=== PATIENT | male | born 1985 | race Two or more races ===

== ENCOUNTER 2021-01-25 08:55 | Emergency (ER) | payer SELFPAY ==
[~2021-01-25] VITALS: Ht 182.9 cm; Wt 95.3 kg
[2021-01-25 09:30] LABS: Urine Amorphous Crystal FEW /hpf (None Seen); Urine Bacteria NONE SEEN /hpf (None Seen); Urine Blood Negative /uL (Negative); Urine Mucus FEW (None Seen); Urine Specific Gravity 1.029 (1.001-1.035); Urine WBC 2 /hpf (0 - 3)
[2021-01-25 09:48] LABS: Alcohol, Urine < 3.0 mg/dL (0-10); Amphetamine Screen, Urine NEGATIVE (NEGATIVE); Barbiturate Scree,Urine NEGATIVE (NEGATIVE); Benzodiazephine Screen, Urine NEGATIVE (NEGATIVE); Cannabinoid Screen, Urine POSITIVE (NEGATIVE); Cocaine Screen, Urine NEGATIVE (NEGATIVE)
[2021-01-25 09:49] LABS: Basophils # (auto) 0 10 ^3/uL (0-0.2); Basophils % (auto) 0.2 % (0.0-2.0); Eosinophils # (auto) 0 10 ^3/uL (0-0.8); Eosinophils % (auto) 0.3 % (0.0-7.0); Hematocrit 44.1 % (41.0-53.0); Hemoglobin 15.1 g/dL (13.5-17.5); Lymphocytes # (auto) 1.7 10 ^3/uL (0.4-5.4); Lymphocytes % (auto) 21.5 % (10.0-50.0); Mean Corpuscular Hgb Conc. 34.3 g/dL (32.0-36.0); Mean Corpuscular Volume 87.3 fL (80.0-100.0); Monocytes # (auto) 0.4 10 ^3/uL (0-1.3); Monocytes % (auto) 5.2 % (0.0-12.0); Neutrophils # (auto) 5.9 10 ^3/uL (1.6-8.6); Neutrophils % (auto) 72.8 % (37.0-80.0); Nucleated Red Blood Cells % 0.1 %; Platelet Count (auto) 204 10^3/uL (140-450); Red Blood Cells 5.05 10^6/uL (4.5-5.90); Red Cell Distribution Width 13.1 % (11.8-14.3); White Blood Cell 8.1 10^3/uL (4.4-10.8)
[2021-01-25 09:58] LABS: Opiate Scree,Urine NEGATIVE (NEGATIVE); Phencyclidine Screen, Urine NEGATIVE (NEGATIVE)
[2021-01-25 10:03] LABS: Calcium 9.1 mg/dL (8.5-10.1); Potassium 3.2 mmol/L (3.5-5.1)
[2021-01-25 10:06] LABS: BUN/Creatinine Ratio 10.6; Bilirubin, Total 0.4 mg/dL (0.2-1.0); Total Protein 7.6 g/dL (6.4-8.2)
[2021-01-25] MEDS ORDERED: PROCHLORPERAZINE EDISYLATE 5 MG/ML 2ML VIAL IV ONE (11:00)
[2021-01-25] MEDS ORDERED: MORPHINE SULFATE 4 MG/ML SYR/VIAL IV ONE (11:00)
[2021-01-25] MEDS ORDERED: SODIUM CHLORIDE 0.9% 1,000 ML IV ONE ×2 (11:00)
[2021-01-25] MEDS ORDERED: POTASSIUM EFFERVESENT TAB 25 MEQ PO ONE (11:15)
[2021-01-25] MEDS ORDERED: KETOROLAC TROMETH 30 MG/ML 1ML VIAL IV ONE (12:00)
[2021-01-25 12:53] VITALS: BP 159/80
== END 2021-01-25 12:57 | disposition home or self-care (01) ==
LOC: ER 08:55
DX: R10.84 Generalized abdominal pain (principal); F12.10 Cannabis abuse, uncomplicated; R11.2 Nausea with vomiting, unspecified; R19.7 Diarrhea, unspecified
CPT/HCPCS: 36415; 80053; 80307; 81001; 85025; 96361; 96374; 96375; 99285; J0780; J1885

== ENCOUNTER 2023-03-18 23:00 | Emergency (ER) | payer MEDICAID, OTHER ==
[~2023-03-18] VITALS: Ht 182.9 cm; Wt 89.0 kg
[2023-03-18 23:49] VITALS: TEMP 98.5
[2023-03-19] MEDS ORDERED: SODIUM CHLORIDE 0.9% 1,000 ML IV ONE
[2023-03-19] MEDS ORDERED: cloNIDine HCL 0.1 MG TAB PO ONE (00:15)
[2023-03-19] MEDS ORDERED: LOPERAMIDE HCL 2 MG CAP/TAB PO ONE (00:15)
[2023-03-19] MEDS ORDERED: METOCLOPRAMIDE HCL 5MG/ml INJ 2ml VIAL IV ONE (00:15)
[2023-03-19 00:32] LABS: Basophils # (auto) 0 10 ^3/uL (0-0.2); Basophils % (auto) 0.5 % (0.0-2.0); Eosinophils # (auto) 0 10 ^3/uL (0-0.8); Eosinophils % (auto) 0.1 % (0.0-7.0); Hematocrit 42.8 % (41.0-53.0); Hemoglobin 14.2 g/dL (13.5-17.5); Lymphocytes # (auto) 1.1 10 ^3/uL (0.4-5.4); Lymphocytes % (auto) 13.7 % (10.0-50.0); Mean Corpuscular Hemoglobin 28.3 pg (28.0-32.0); Mean Corpuscular Hgb Conc. 33.2 g/dL (32.0-36.0); Mean Corpuscular Volume 85.4 fL (80.0-100.0); Monocytes # (auto) 0.4 10 ^3/uL (0-1.3); Monocytes % (auto) 5.7 % (0.0-12.0); Neutrophils # (auto) 6.2 10 ^3/uL (1.6-8.6); Nucleated Red Blood Cells % 0.1 %; Red Blood Cells 5.01 10^6/uL (4.5-5.90); Red Cell Distribution Width 13.2 % (11.8-14.3); White Blood Cell 7.7 10^3/uL (4.4-10.8)
[2023-03-19 01:00] LABS: Albumin 4.2 g/dL (3.4-5.0); Calcium 9.7 mg/dL (8.5-10.1); Potassium 3.6 mmol/L (3.5-5.1)
[2023-03-19 01:01] LABS: BUN/Creatinine Ratio 7.9 (10.0-20.0)
[2023-03-19 01:04] LABS: Total Protein 7.6 g/dL (6.4-8.2)
[2023-03-19] MEDS ORDERED: ACETAMINOPHEN/CODEINE#3 (300/30mg) TAB PO ONE (02:00)
[2023-03-19] MEDS ORDERED: NALO4SPR2 NAS (03:42)
[2023-03-19 04:30] VITALS: BP 116/71; PULSE 84; RESP 14; O2SAT 95
== END 2023-03-19 05:03 | disposition home or self-care (01) ==
LOC: ER 23:00
DX: F11.13 Opioid abuse with withdrawal (principal); R11.0 Nausea; R19.7 Diarrhea, unspecified; R10.9 Unspecified abdominal pain
CPT/HCPCS: 36415; 80053; 85025; 93005; 96361; 96374; 99284; J2765; J7030

== ENCOUNTER 2024-03-12 09:52 | Emergency (ER) | payer MEDICAID, OTHER ==
[~2024-03-12] VITALS: Ht 182.9 cm; Wt 93.2 kg
[~2024-03-12 09:52] MED LIST: NALO4SPR2 NAS
[2024-03-12 11:46] VITALS: BP 129/66; PULSE 63; RESP 18; TEMP 98.1; O2SAT 97
[2024-03-12] MEDS ORDERED: CEPH500C PO (13:31)
[2024-03-12] MEDS: TETANUS-DIPTH-ACEL PERTUSSIS 0.5ML SYR Tdap IM ONE (13:45)
[2024-03-13 09:15] LABS: Hepatitis B Surface Antibody Positive (Negative)
[2024-03-13 09:27] LABS: Hepatitis B Surface Antigen Negative (Negative)
== END 2024-03-12 14:00 | disposition home or self-care (01) ==
LOC: ER 09:53
DX: S91.311A Laceration without foreign body, right foot, initial encounter (principal); W22.8XXA Striking against or struck by other objects, initial encounter; Y93.01 Activity, walking, marching and hiking; Y92.096 Garden or yard of other non-institutional residence as the place of occurrence of the external cause; Y99.8 Other external cause status
CPT/HCPCS: 36415; 73630; 86703; 86706; 86803; 87340; 90471; 90715

== ENCOUNTER 2024-04-06 05:49 | Emergency (ER) | payer OTHER ==
[~2024-04-06] VITALS: Ht 182.9 cm; Wt 84.1 kg
[~2024-04-06 05:49] MED LIST changes: +CEPH500C PO
[2024-04-06 06:43] VITALS: BP 133/80; PULSE 105; RESP 18; TEMP 97.7; O2SAT 97
== END 2024-04-06 07:13 | disposition home or self-care (01) ==
LOC: ER 05:49
DX: S91.311D Laceration without foreign body, right foot, subsequent encounter (principal); Z48.00 Encounter for change or removal of nonsurgical wound dressing; Z79.899 Other long term (current) drug therapy; X58.XXXD Exposure to other specified factors, subsequent encounter

== ENCOUNTER 2024-12-12 06:21 | Emergency (ER) | payer OTHER ==
[~2024-12-12] VITALS: Ht 182.9 cm; Wt 93.7 kg
[2024-12-12 07:39] VITALS: BP 148/87; PULSE 67; RESP 16; TEMP 98.2; O2SAT 98
[2024-12-12] MEDS ORDERED: CEPH500C PO (07:48)
[2024-12-12] MEDS ORDERED: METH4PAK PO (07:48)
[2024-12-12] MEDS ORDERED: TRIA0.1O TOP (07:48)
--- NOTE | 2024-12-12 07:48 | ED.PDOC ---
History of Present Illness(SKN HPI Comments A 39 YEAR OLD MALE PRESENTS TO THE ED WITH COMPLAINT OF RASH. PATIENT STATES HE HAS BEEN EXPERIENCING A RASH ON HIS BILATERAL FEET FOR THE PAST 1 YEAR THAT COMES AND GOES A RASH ON HIS BILATERAL HANDS AND SCALP OFF AND ON FOR THE PAST 2 MONTHS. PATIENT REPORTS HE HAS A HISTORY OF ECZEMA. PATIENT DENIES FEVER, CHILLS, SHORTNESS OF BREATH, CHEST PAIN, ABDOMINAL PAIN, NAUSEA, VOMITING, HEADACHE, OR OTHER COMPLAINTS. NO OTHER SYMPTOMS OR MODIFYING FACTORS AT THIS TIME. PATIENT IS ALERT, ORIENTED X 4, AND HAS STEADY GAIT. Chief Complaint: Rash Time Seen by MD: 07:27 Primary Care Provider: NONE History of Present Illness: Nurses Notes, Medications, Allergies Allergies: Coded Allergies: NO KNOWN ALLERGIES (Unverified , 01/25/21) Home Meds Active Scripts Methylprednisolone (Medrol Dosepak) 4 Mg Pollo, 4 MG PO UD, #21 TAB UAD Prov:DELON FRIAS 12/12/24 Triamcinolone Acetonide (Triamcinolone Acetonide) 0.1 % Oin, 1 APPLIC TOP BID, #30 GRAMS Prov:DELON FRIAS PA 12/12/24 Cephalexin Monohydrate (Cephalexin) 500 Mg Cap, 1 CAP PO QID, #40 CAP Prov:DELON FRIAS 12/12/24 Cephalexin Monohydrate (Cephalexin) 500 Mg Cap, 1 CAP PO QID for 5 Days, #20 CAP 0 Refills Prov:DAMARIS GODWIN FOOD SAFETY SCIENTIST 03/12/24 Naloxone HCl (Narcan) 4 Mg/0.1 Ml Spr, 4 MG CYNDY ONCE PRN, #1 SPRAY 5 Refills May repeat doses every 2-3 minutes as needed. Prov:ROBERT MALIN 03/19/23 Information Source: Patient Mode of Arrival: Ambulatory Severity: Moderate Timing: Months Duration: Since onset, Intermittent Prehospital treatment: None Location: Abdomen, Foot, Hand, Head (SCALP) Mechanism: Spontaneous Onset Developed: Rash Occurence: Indoors Object: None Condition of Object: None Retained Foreign Body: No Wound Type: None Immunization Status of Animal: NA Tetanus: Unknown History of: None Associated Signs and Symptoms: Redness, Pain Past Medical History PAST MEDICAL HISTORY: Asthma Past Medical History (Other): ECZEMA Surgical History: Denies all surgeries Family History Family History: Reviewed,noncontributory to illness, No family hx of Cancer, No family hx of DM, No family hx of Heart berta, No family hx of HTN, No family hx ofKidney berta, No family hx of Liver berta, No family hx of Lung berta, No family hx of Stroke Social History Smoker: Cigarettes Alcohol: Denies ETOH Use Drugs: Denies Drug Use Lives In: Home Constitutional: denies: chills, diaphoresis, fatigue, fever, malaise, sweats, weakness, others EENTM: denies: blurred vision, double vision, ear bleeding, ear discharge, ear drainage, ear pain, ear ringing, eye pain, eye redness, hearing loss, mouth pain, mouth swelling, nasal discharge, nose bleeding, nose congestion, nose pain, photophobia, tearing, throat pain, throat swelling, voice changes, others Respiratory: denies: cough, hemoptysis, orthopnea, SOB at rest, shortness of breath, SOB with excertion, stridor, wheezing, others Cardiovascular: denies: chest pain, dizzy spells, diaphoresis, Dyspnea on exertion, edema, irregular heart beat, left arm pain, lightheadedness, palpitations, PND, syncope, others Gastrointestinal: denies: abdomen distended, abdominal pain, blood streaked bowels, constipated, diarrhea, dysphagia, difficulty swallowing, hematemesis, melena, nausea, poor appetite, poor fluid intake, rectal bleeding, rectal pain, vomiting, others Genitourinary: denies: burning, dysuria, flank pain, frequency, hematuria, incontinence, penile discharge, penile sore, pain, testicle pain, testicle swelling, urgency, others Neurological: denies: dizziness, fainting, headache, left sided numbness, left sided weakness, numbness, paresthesia, pre-existing deficit, right sided numbness, right sided weakness, seizure, speech problems, tingling, tremors, weakness, others Musculoskeletal: denies: back pain, gout, joint pain, joint swelling, muscle pain, muscle stiffness, neck pain, others Integumetry: reports: lesions, rash (RASH OF BILATERAL HANDS, FEET, AND SCALP); denies: bruises, change in color, change in hair/nails, dryness, laceration, lumps, wounds, others Allergic/Immunocompromised: denies: Difficulty Healing, Frequent Infections, Hives, Itching, others Hematologic/Lymphatic: denies: anemia, blood clots, easy bleeding, easy bruising, swollen glands, others Endocrine: denies: excessive hunger, excessive sweating, excessive thirst, excessive urination, flushing, intolerance to cold, intolerance to heat, unexplained weight gain, unexplained weight loss, others Psychiatric: denies: anxiety, bipolar disorder, depression, hopeless, panic disorder, schizophrenia, sleepless, suicidal, others All Other Systems: Reviewed and Negative Physical Exam General Appearance: No Apparent Distress, Normal HEENT: Normal ENT Inspection, PERRL/EOMI, Pharynx Normal, TMs Normal Neck: Full Range of Motion, Non-Tender, Normal, Normal Inspection Respiratory: Chest Non-Tender, Lungs Clear, No Accessory Muscle Use, No Respiratory Distress, Normal Breath Sounds Cardiovascular: No Edema, No JVD, No Murmur, No Gallop, Normal Peripheral Pulses, Regular Rate/Rhythm Breast Exam: Deferred Gastrointestinal: No Organomegaly, Non Tender, No Pulsatile Mass, Normal Bowel Sounds, Soft Genitalia: Deferred Pelvic: Deferred Rectal: Deferred Extremities: No calf tenderness, Normal capillary refill, Normal inspection, Normal range of motion, Non-tender, No pedal edema Musculoskeletal : Apperance: Normal Neurologic: Alert, termination clerk II-XII nml as Tested, No Motor Deficits, Normal Affect, Normal Mood, No Sensory Deficits Cerebellar Function: Normal Reflexes: Normal Skin: Dry, Rash (ECZEMATOUS SKIN RASH WITH PAPULAR, MACULAR AND VESICLE/CRUSTED SKIN RASH ON BILATERAL INNER FOOT, PALMS AND LOWER ABD WALL. +ECZEMA. ), Warm Peripheral Pulses: 2+ carotid (R), 2+ carotid (L), 2+ dorsalis pedis (R), 2+ dorsalis pedis (L) Lymphatic: No Adenopathy Was a procedure done? Was a procedure done?: No Differential Diagnosis (INTG) Differential Diagnosis: N/A Differential Diagnosis: Atopic dermatitis, Contact Dermatitis, Impetigo, Intertrigo, Scabies, Tinea, Urticaria Differential Diagnosis: N/A Abscess: N/A Differential Diagnosis: N/A X-Ray, Labs, Meds, VS Vital Signs Date Time Temp Pulse Resp B/P (MAP) Pulse Ox O2 Delivery O2 Flow Rate FiO2 12/12/24 07:39 98.2 67 16 148/87 (107) 98 98.2 12/12/24 07:39 67 16 98 Room Air 12/12/24 07:15 98.2 67 16 148/87 (107) 98 98.2 X-Ray, Labs, Meds, VS Comment EXTERNAL MEDICAL RECORDS REVIEWED: [NONE] INDEPENDENT HISTORIANS: [NONE] SOCIAL DETERMINANTS OF HEALTH: [NONE] LABS ORDERED: NONE REVIEWED AND INTERPRETED RESULTS: NONE IMAGING ORDERED: NONE TREATMENTS ORDERED: NONE PROCEDURES PERFORMED: NONE CRITICAL CARE TIME: NONE I HAVE DISCUSSED THE PATIENT WITH THE ATTENDING PHYSICIAN DR. FLETCHER AND HE AGREES WITH THE PATIENT'S PLAN OF CARE AND DISPOSITION. BASED ON HISTORY OF PRESENT ILLNESS, AND PHYSICAL EXAM, PATIENT WILL BE DISCHARGED HOME. DISCUSSED PLAN FOR DISCHARGE HOME WITH RX [KEFLEX, MEDROL DOSEPAK, AND TRIAMCINOLONE CREAM]. MEDICATION WARNINGS GIVEN. SHARED DECISION MAKING: PATIENT INSTRUCTED TO FOLLOW UP WITH PRIMARY CARE PROVIDER IN 1-2 DAYS FOR RE-EVALUATION OF SYMPTOMS. PATIENT VERBALIZES UNDERSTANDING TO RETURN TO ED FOR NEW OR WORSENING SYMPTOMS OR IF FOLLOW UP WITH PCP CANNOT BE OBTAINED. PATIENT FEELS COMFORTABLE GOING HOME AT THIS TIME. ALL QUESTIONS ADDRESSED AT TIME OF DISCHARGE. Time of 1ST Reevaluation: 08:00 Reevaluation 1ST: Improved Patient Education/Counseling: Diagnosis, Treatment, Need For Follow Up Family Education/Counseling: Diagnosis, Treatment, Need For Follow Up Medical Screening: No EMC Exist At This Time Departure 1 Departure Time of Disposition: 08:00 Impression: Primary Impression: Atopic dermatitis Qualified Codes: L20.9 - Atopic dermatitis, unspecified Disposition: 01 HOME / SELF CARE / HOMELESS Condition: Stable Additional Instructions: FOLLOW-UP WITH PCP IN 1 TO 2 DAYS FOR REFERRAL TO [facility]. TAKE MEDICATIONS PRESCRIBED. RETURN TO ED FOR ANY NEW OR WORSENING SYMPTOMS. e-Prescriptions Methylprednisolone (Medrol Dosepak) 4 Mg Pollo 4 MG PO UD, #21 TAB UAD Prov: DELON FRIAS 12/12/24 Triamcinolone Acetonide (Triamcinolone Acetonide) 0.1 % Oin 1 APPLIC TOP BID, #30 GRAMS Prov: DELON FRIAS 12/12/24 Cephalexin Monohydrate (Cephalexin) 500 Mg Cap 1 CAP PO QID, #40 CAP Prov: DELON FRIAS 12/12/24 Discharged With: Self Critical Care Note Critical Care Time?: No Stability Stability form required: No I personally scribed for DELON FRIAS ([email or web address]) on 12/12/24 at 07:48. Electronically submitted by Nemesio Grace ([email or web address]). DELON FRIAS Dec 12, 2024 07:48
== END 2024-12-12 07:54 | disposition home or self-care (01) ==
LOC: ER 06:21
DX: L20.9 Atopic dermatitis, unspecified (principal); J45.909 Unspecified asthma, uncomplicated; F17.210 Nicotine dependence, cigarettes, uncomplicated

== ENCOUNTER 2025-03-10 10:55 | Inpatient (IN) | payer MEDICAID, OTHER ==
[~2025-03-10] VITALS: Ht 182.9 cm; Wt 90.9 kg
[~2025-03-10 10:55] MED LIST changes: +METH4PAK PO; +TRIA0.1O TOP
--- NOTE | 2025-03-10 13:51 | ED.PDOC ---
GI ASSESSMENT HPI Comments 39-year-old male presents with a chief complaint of abdominal pain with associated nausea, vomiting, diarrhea and fever. Patient mentions that his pain is localized to his LUQ and LLQ, nonradiating, and has been present for 2 days. Patient reports that he has had symptoms like this before in the past and was given Zofran, but states that it did not work for him. Patient states he is not currently able to tolerate any food or liquids. Patient denies any rectal bleeding or hematemesis. Patient is not currently vomiting. Chief Complaint: Nausea/Vomiting Time Seen by MD: 13:19 Primary Care Provider: NONE Reviewed Notes: Medications, Allergies Allergies: Coded Allergies: NO KNOWN ALLERGIES (Unverified , 01/25/21) Home Meds Active Scripts Methylprednisolone (Medrol Dosepak) 4 Mg Pollo, 4 MG PO UD, #21 TAB UAD Prov:DELON FRIAS 12/12/24 Triamcinolone Acetonide (Triamcinolone Acetonide) 0.1 % Oin, 1 APPLIC TOP BID, #30 GRAMS Prov:DELON FRIAS 12/12/24 Cephalexin Monohydrate (Cephalexin) 500 Mg Cap, 1 CAP PO QID, #40 CAP Prov:DELON FRIAS 12/12/24 Cephalexin Monohydrate (Cephalexin) 500 Mg Cap, 1 CAP PO QID for 5 Days, #20 CAP 0 Refills Prov:DAMARIS GODWIN DIRECTOR OF ANALYTICS 03/12/24 Naloxone HCl (Narcan) 4 Mg/0.1 Ml Spr, 4 MG CYNDY ONCE PRN, #1 SPRAY 5 Refills May repeat doses every 2-3 minutes as needed. Prov:ROBERT MALIN 03/19/23 Information Source: Patient Mode of Arrival: Ambulatory Timing: Days Duration: Since onset Prehospital treatment: None Quality: Aching Vomitus: Food Particles Stool: Watery Severity: Moderate Recent: None Recent Hx of: None Pain Location: LUQ, LLQ Modifying Factors: Nothing Associated sign and symptoms: Nausea, Vomiting, Diarrhea, Abdominal Pain Past Medical History PAST MEDICAL HISTORY: Asthma Surgical History: Denies all surgeries Family History Family History: Reviewed,noncontributory to illness, No family hx of Cancer, No family hx of DM, No family hx of Heart berta, No family hx of HTN, No family hx ofKidney berta, No family hx of Liver berta, No family hx of Lung berta, No family hx of Stroke Social History Smoker: Cigarettes Alcohol: Denies ETOH Use Drugs: Denies Drug Use Lives In: Home Constitutional: denies: chills, diaphoresis, fatigue, fever, malaise, sweats, weakness, others EENTM: denies: blurred vision, double vision, ear bleeding, ear discharge, ear drainage, ear pain, ear ringing, eye pain, eye redness, hearing loss, mouth pain, mouth swelling, nasal discharge, nose bleeding, nose congestion, nose pain, photophobia, tearing, throat pain, throat swelling, voice changes, others Respiratory: denies: cough, hemoptysis, orthopnea, SOB at rest, shortness of breath, SOB with excertion, stridor, wheezing, others Cardiovascular: denies: chest pain, dizzy spells, diaphoresis, Dyspnea on exertion, edema, irregular heart beat, left arm pain, lightheadedness, palpitations, PND, syncope, others Gastrointestinal: reports: abdominal pain, diarrhea, nausea, vomiting; denies: abdomen distended, blood streaked bowels, constipated, dysphagia, difficulty swallowing, hematemesis, melena, poor appetite, poor fluid intake, rectal bleeding, rectal pain, others Genitourinary: denies: burning, dysuria, flank pain, frequency, hematuria, incontinence, penile discharge, penile sore, pain, testicle pain, testicle swelling, urgency, others Neurological: denies: dizziness, fainting, headache, left sided numbness, left sided weakness, numbness, paresthesia, pre-existing deficit, right sided numbness, right sided weakness, seizure, speech problems, tingling, tremors, weakness, others Musculoskeletal: denies: back pain, gout, joint pain, joint swelling, muscle pain, muscle stiffness, neck pain, others Integumetry: denies: bruises, change in color, change in hair/nails, dryness, laceration, lesions, lumps, rash, wounds, others Allergic/Immunocompromised: denies: Difficulty Healing, Frequent Infections, Hives, Itching, others Hematologic/Lymphatic: denies: anemia, blood clots, easy bleeding, easy bruising, swollen glands, others Endocrine: denies: excessive hunger, excessive sweating, excessive thirst, excessive urination, flushing, intolerance to cold, intolerance to heat, unexplained weight gain, unexplained weight loss, others Psychiatric: denies: anxiety, bipolar disorder, depression, hopeless, panic disorder, schizophrenia, sleepless, suicidal, others All Other Systems: Reviewed and Negative Physical Exam General Appearance: Moderate Distress HEENT: Other (Pupils and face symmetric. Dry mucous membranes.) Neck: Full Range of Motion, Normal Inspection Respiratory: Lungs Clear, No Accessory Muscle Use, No Respiratory Distress, Normal Breath Sounds Cardiovascular: No Edema, No JVD, Regular Rate/Rhythm Breast Exam: Deferred Gastrointestinal: Epigastric, LLQ, LUQ, Soft, Tenderness Genitalia: Deferred Pelvic: Deferred Rectal: Deferred Extremities: Normal inspection, Normal range of motion, Non-tender, No pedal edema Neurologic: Alert (Oriented x4), Normal Affect, Normal Mood, Other (Ambulatory) Cerebellar Function: NOT DONE Reflexes: NOT DONE Skin: Diaphoresis, Pallor, Warm Lymphatic: NOT DONE Was a procedure done? Was a procedure done?: No GI differential Dx Differential Diagnosis: Diverticular disease, Gastritis/PUD, Gastroenteritis, Inflammatory BD, Ischemic Bowel, Pancreatitis, UTI, Dehydration, Electrolyte Imbalance, Food Poisoning, Bacterial, Viral, Hypovolemia, Kidney Stone Other Differential Diagnosis Colitis, among others X-Ray, Labs, Meds, VS Vital Signs Date Time Temp Pulse Resp B/P (MAP) Pulse Ox O2 Delivery O2 Flow Rate FiO2 03/10/25 15:05 60 18 137/70 03/10/25 14:58 60 18 98 Room Air* 0 21 03/10/25 14:58 98.1 60 18 137/70 (92) 99 98.1 03/10/25 12:10 98.2 73 20 140/74 (96) 100 98.2 Lab Test 03/10/25 13:57 Range/Units White Blood Count 6.1 4.4-10.8 10^3/uL Red Blood Count 5.67 4.5-5.90 10^6/uL Hemoglobin 16.5 13.5-17.5 g/dL Hematocrit 47.8 41.0-53.0 % Mean Corpuscular Volume 84.3 80.0-100.0 fL Mean Corpuscular Hemoglobin 29.1 28.0-32.0 pg Mean Corpuscular Hemoglobin Concent 34.5 32.0-36.0 g/dL Red Cell Distribution Width 13.2 11.8-14.3 % Platelet Count 231 140-450 10^3/uL Mean Platelet Volume 10.3 6.9-10.8 fL Neutrophils (%) (Auto) 85.0 H 37.0-80.0 % Lymphocytes (%) (Auto) 12.2 10.0-50.0 % Monocytes (%) (Auto) 2.5 0.0-12.0 % Eosinophils (%) (Auto) 0.0 0.0-7.0 % Basophils (%) (Auto) 0.3 0.0-2.0 % Neutrophils # (Auto) 5.2 1.6-8.6 10 ^3/uL Lymphocytes # (Auto) 0.7 0.4-5.4 10 ^3/uL Monocytes # (Auto) 0.2 0-1.3 10 ^3/uL Eosinophils # (Auto) 0 0-0.8 10 ^3/uL Basophils # (Auto) 0 0-0.2 10 ^3/uL Nucleated Red Blood Cells 0.2 % Sodium Level 141 136-145 mmol/L Potassium Level 3.5 3.5-5.1 mmol/L Chloride Level 109 H 98-107 mmol/L Carbon Dioxide Level 21 20-31 mmol/L Anion Gap 11 5-15 Blood Urea Nitrogen 7 L 9-23 mg/dL Creatinine 0.94 0.700-1.30 mg/dL Glomerular Filtration Rate Calc 106 >90 mL/min BUN/Creatinine Ratio 7.4 L 10.0-20.0 Serum Glucose 107 H 74-106 mg/dL Calcium Level 9.8 8.7-10.4 mg/dL Total Bilirubin 0.6 0.2-1.0 mg/dL Aspartate Amino Transferase (AST) 23 13-40 U/L Alanine Aminotransferase (ALT) 23 7-40 U/L Alkaline Phosphatase 86 46-116 U/L Total Protein 7.5 5.7-8.2 g/dL Albumin 4.8 3.2-4.8 g/dL Lipase 27 12-53 U/L Current Medications Medications (Trade) Dose Ordered Sig/Andrew Route Start Time Stop Time Status Last Admin Sodium Chloride 3,000 ml @ 1,000 mls/hr Q3H ONCE IV 03/10/25 13:30 03/10/25 16:29 03/10/25 15:05 Ondansetron HCl (Zofran) 8 mg ONCE ONCE IV 03/10/25 13:30 03/10/25 13:35 DC 03/10/25 15:06 Morphine Sulfate 4 mg ONCE ONCE IV 03/10/25 13:30 03/10/25 13:35 DC 03/10/25 15:05 Metronidazole 100 ml @ 100 mls/hr ONCE ONCE IV 03/10/25 15:00 03/10/25 15:59 DC 03/10/25 15:32 PROCEDURE(s): ABPL - CT AB PEL WO CON-NO ORAL OR IV REASON: LUQ pain n/v/d ORDER NUMBER(s): [id number], ACCESSION NUMBER(s): [id number] Exam: CT CT AB PEL WO CON-NO ORAL OR IV History: LUQ pain n/v/d Comparison Study: None TECHNIQUE: Multidetector CT of the abdomen and pelvis without IV contrast. Axial, coronal and sagittal multiplanar reformats were obtained from the axial data set by the technologist. Radiation Dose Information: CT Dose: CTDI volume is 8.72 mGy. Dose-length product is 841.62 mGy*cm FINDINGS: Bibasilar atelectasis. Partially visualized heart is unremarkable. Mild hepatomegaly. Otherwise, liver, spleen, gallbladder, pancreas unremarkable. Mild hyperplasia of the left adrenal gland. Otherwise, the adrenal glands are unremarkable. Kidneys, ureters and urinary bladder unremarkable. Prostate measures 3.8 x 4.9 by 3.1 cm. Stomach is unremarkable. Small bowel loops unremarkable. Appendix is not well- visualized with no pericecal inflammatory reaction to suggest acute appendicitis. Limited evaluation of the abdominal structures due to motion. Questionable minimal wall thickening of the decompressed ascending colon with artifact limiting evaluation. Diverticulosis of the ascending colon without diverticulitis. No evidence of intraperitoneal free air or free fluid. No evidence of aortic aneurysm. No significant lymphadenopathy. Tiny fat containing umbilical hernia. Small fat containing left inguinal hernia. Subcentimeter bilateral inguinal lymph nodes which may be reactive. Destructive osseous lesions noted. IMPRESSION: Limited noncontrast imaging with motion artifact. Questionable minimal wall thickening of the decompressed ascending colon which may be due to inadequate distention with mild colitis not excluded. Colonic diverticulosis without diverticulitis. Appendix is not well-visualized. Without complete visualization of the appendix, can not exclude acute appendicitis. X-Ray, Labs, Meds, VS Comment 39-year-old male with a history of asthma presenting with nausea, vomiting, diarrhea, left-sided abdominal pain and subjective fever Vitals unremarkable Exam remarkable for epigastric and left-sided abdominal tenderness to palpation Rhythm strip independently interpreted by me: Sinus rhythm, rate 73, no ectopy. CT abdomen and pelvis IMPRESSION: Limited noncontrast imaging with motion artifact. Questionable minimal wall thickening of the decompressed ascending colon which may be due to inadequate distention with mild colitis not excluded. Colonic diverticulosis without diverticulitis. Appendix is not well-visualized. Without complete visualization of the appendix, can not exclude acute appendicitis. CBC, CMP and lipase unremarkable. UA pending Patient treated with the following in the ED: 3 L 0.9 normal saline IV bolus, morphine 4 mg IV, Zofran 8 mg IV, Levaquin 500 mg IV, Flagyl 500 mg IV, Compazine 10 mg IV On re-evaluation, patient states pain has improved, however patient was still vomiting despite 8 mg of IV Zofran. IV Compazine was ordered. Plan is to admit the patient for IV antibiotics, emesis control and possible GI evaluation. Time of 1ST Reevaluation: 13:49 Reevaluation 1ST: Unchanged Patient Education/Counseling: Diagnosis, Treatment Family Education/Counseling: No Family Present SEPSIS Sepsis Screen Date sepsis recognized/suspect: Mar 10, 2025 Time Sepsis recognized/suspect: 1210 Recent Procedure: No On Antibiotic Therapy: No Respiratory Rate >20: No Heart Rate >90: No Temp<36 C (96.8 F) or >38.3 C: No SBP <90 or MAP <65 mmHG: No New Acute Mental Status Change: No Is the patient on CPAP, BIPAP,: No Physician Orders Urinalysis (03/10/25 13:22) Ct Ab Pel Wo Con-No Oral Or Iv (03/10/25 13:22) Sodium Chloride 0.9% (03/10/25 13:30) Prochlorperazine Inj (Compazine Inj) (03/10/25 16:15) Vital Signs Date Time Temp Pulse Resp B/P (MAP) Pulse Ox O2 Delivery O2 Flow Rate FiO2 03/10/25 15:05 60 18 137/70 03/10/25 14:58 60 18 98 Room Air* 0 21 03/10/25 14:58 98.1 60 18 137/70 (92) 99 98.1 03/10/25 12:10 98.2 73 20 140/74 (96) 100 98.2 Laboratory Tests Test 03/10/25 13:57 White Blood Count 6.1 10^3/uL (4.4-10.8) Medications Medications Dose Ordered Sig/Andrew Route Start Time Stop Time Status Last Admin Dose Admin Metronidazole 100 ml @ 100 mls/hr ONCE ONCE IV 03/10/25 15:00 03/10/25 15:59 DC 03/10/25 15:32 Morphine Sulfate 4 mg ONCE ONCE IV 03/10/25 13:30 03/10/25 13:35 DC 03/10/25 15:05 Ondansetron HCl 8 mg ONCE ONCE IV 03/10/25 13:30 03/10/25 13:35 DC 03/10/25 15:06 Sodium Chloride 3,000 ml @ 1,000 mls/hr Q3H ONCE IV 03/10/25 13:30 03/10/25 16:29 03/10/25 15:05 Departure 1 Departure Time of Disposition: 16:30 Impression: Primary Impression: Colitis Additional Impression: Intractable vomiting with nausea Disposition: 09 ADMITTED INPATIENT Admit to: Med Surg Condition: Guarded Critical Care Note Critical Care Time?: No Stability Stability form required: No Heart Score Heart Score: Heart Score Response (Comments) Value History N/A 0 EKG N/A 0 Age N/A 0 Risk Factors N/A 0 Troponin N/A 0 Total 0 I personally scribed for ROSALIO CLEMENS MD ([email or web address]) on 03/10/25 at 13:51. Electronically submitted by Jonh Newsome ([email or web address]). ROSALIO CLEMENS MD Mar 10, 2025 13:51
--- NOTE | 2025-03-10 14:00 | DVH ---
Exam: CT CT AB PEL WO CON-NO ORAL OR IV History: LUQ pain n/v/d Comparison Study: None TECHNIQUE: Multidetector CT of the abdomen and pelvis without IV contrast. Axial, coronal and sagitta l multiplanar reformats were obtained from the axial data set by the technologist. Radiation Dose Information: CT Dose: CTDI volume is 8.72 mGy. Dose-length product is 841.62 mGy*cm FINDINGS: Bibasilar atelectasis. Partially visualized heart is unremarkable. Mild hepatomegaly. Otherwise, liver, spleen, gallbladder, pancreas unremarkable. Mild hyperplasia o f the left adrenal gland. Otherwise, the adrenal glands are unremarkable. Kidneys, ureters and urinary bladder unremarkable. Prostate measures 3.8 x 4.9 by 3.1 cm. Stomach is unremarkable. Small bowel loops unremarkable. Appendix is not well-visualized with no per icecal inflammatory reaction to suggest acute appendicitis. Limited evaluation of the abdominal struc tures due to motion. Questionable minimal wall thickening of the decompressed ascending colon with ar tifact limiting evaluation. Diverticulosis of the ascending colon without diverticulitis. No evidence of intraperitoneal free air or free fluid. No evidence of aortic aneurysm. No significant lymphadenopathy. Tiny fat containing umbilical hernia. Small fat containing left inguinal hernia. Subcentimeter bilate ral inguinal lymph nodes which may be reactive. Destructive osseous lesions noted. IMPRESSION: Limited noncontrast imaging with motion artifact. Questionable minimal wall thickening of the decompressed ascending colon which may be due to inadequa te distention with mild colitis not excluded. Colonic diverticulosis without diverticulitis. Appendix is not well-visualized. Without complete visualization of the appendix, can not exclude acu te appendicitis.
[2025-03-10 14:12] LABS: Hematocrit 47.8 % (41.0-53.0); Hemoglobin 16.5 g/dL (13.5-17.5); Mean Corpuscular Hemoglobin 29.1 pg (28.0-32.0); Mean Corpuscular Volume 84.3 fL (80.0-100.0); Nucleated Red Blood Cells % 0.2 %
[2025-03-10 14:34] LABS: Alanine Aminotransferase 23 U/L (7-40); Albumin 4.8 g/dL (3.2-4.8); Alkaline Phosphatase 86 U/L (46-116); Anion Gap 11 (5-15); BUN/Creatinine Ratio 7.4 (10.0-20.0); Calcium 9.8 mg/dL (8.7-10.4); Carbon Dioxide 21 mmol/L (20-31); Lipase 27 U/L (12-53); Sodium 141 mmol/L (136-145); Total Protein 7.5 g/dL (5.7-8.2)
[2025-03-10 14:35] LABS: Bilirubin, Total 0.6 mg/dL (0.2-1.0); Blood Urea Nitrogen 7 mg/dL (9-23); Chloride 109 mmol/L (98-107); Glucose 107 mg/dL (74-106); Potassium 3.5 mmol/L (3.5-5.1)
[2025-03-10 14:58] VITALS: PULSE 60; RESP 18; O2SAT 98
[2025-03-10] MEDS: SODIUM CHLORIDE 0.9% 3,000 ML IV ONE (15:05)
[2025-03-10] MEDS: MORPHINE SULFATE 4 MG/ML SYR/VIAL IV ONE (15:05)
[2025-03-10] MEDS: ONDANSETRON HCL 4 MG/2 ML VIAL IV ONE (15:06)
[2025-03-10 16:28] VITALS: PULSE 49; RESP 14; O2SAT 99
[2025-03-10] MEDS: PROCHLORPERAZINE EDISYLATE 5 MG/ML 2ML VIAL IV ONE (17:24)
[2025-03-10] MEDS ORDERED: MORPHINE SULFATE INJ 2 MG/ml SYRG IV PRN (19:15)
[2025-03-10] MEDS ORDERED: ACETAMINOPHEN 325 MG TAB PO PRN (19:15)
[2025-03-10] MEDS ORDERED: ONDANSETRON HCL 4 MG/2 ML VIAL IV PRN (19:15)
[2025-03-10 19:17] LABS: Urine Protein, UAD TRACE (Negative)
[2025-03-10 19:25] VITALS: PULSE 68; RESP 17; O2SAT 96
[2025-03-10 22:00] VITALS: BP 127/75; PULSE 59; RESP 16; TEMP 98.5; O2SAT 98
[2025-03-10 22:04] VITALS: BP 121/75; PULSE 59; RESP 16; TEMP 98.5; O2SAT 97; O2SAT 98
--- NOTE | 2025-03-10 22:06 | DVHHP2 ---
History of Present Illness Reason for Visit: Abdominal pain History of Present Illness 39-year-old male presents for evaluation of abdominal pain. Patient reports a two day history of left-sided abdominal pain with associated nausea, vomiting and diarrhea. Reports intermittent chills as well. No other acute complaints reported. Past Medical History Asthma Past Surgical History Denies Family History Noncontributory Smoke: <1 pack per day ALCOHOL: occassional Drugs: None Lives: with Family Review of Systems Review of Systems Review of systems are currently negative otherwise addressed in HPI. Allergies: Coded Allergies: NO KNOWN ALLERGIES (Unverified , 01/25/21) Medications Current Medications Medications Dose Ordered Sig/Andrew Route Start Time Stop Time Status Last Admin Dose Admin Ceftriaxone Sodium 50 ml @ 100 mls/hr DAILY@09 IV 03/11/25 09:00 Metronidazole 100 ml @ 100 mls/hr Q8HR IV 03/10/25 22:00 Pantoprazole Sodium 40 mg DAILY IV 03/11/25 10:00 Acetaminophen/ Hydrocodone Bitart 1 tab Q4HP PRN PO 03/10/25 19:15 Temazepam 15 mg QHSP PRN PO 03/10/25 22:00 Ondansetron HCl 4 mg Q4HP PRN IV 03/10/25 19:15 Acetaminophen 650 mg Q6HP PRN PO 03/10/25 19:15 Morphine Sulfate 2 mg Q6HPRN PRN IV 03/10/25 19:15 Exam Vital Signs Vital Signs Date Time Temp Pulse Resp B/P (MAP) Pulse Ox O2 Delivery O2 Flow Rate FiO2 03/10/25 21:00 98.0 65 19 115/58 (77) 98 98.0 03/10/25 19:25 Room Air* 0 21 Exam Gen: 39-year-old male in mild distress. Skin: Warm, dry, normal color and texture, no rash. HEENT: Normocephalic atraumatic, mucous membranes moist and pink. Neck: Cervical and supraclavicular nodes normal without enlargement, trachea is midline, thyroid gland is normal without masses. Pulmonary: Clear to auscultation and percussion bilaterally. Cardiac: Regular rate and rhythm. No murmur Abdomen: Soft, left-sided tenderness, nondistended, bowel sounds present all 4 quadrants, no guarding, no rigidity, no organomegaly. Extremities: No cyanosis, clubbing, no edema Neuro: Cranial nerves II through XII grossly intact, normal affect and speech, no focal motor deficits. Labs/Xrays ORDERING PHYSICIAN: ROSALIO CLEMENS MD PROCEDURE(s): ABPL - CT AB PEL WO CON-NO ORAL OR IV REASON: LUQ pain n/v/d ORDER NUMBER(s): [id number], ACCESSION NUMBER(s): [id number] Exam: CT CT AB PEL WO CON-NO ORAL OR IV History: LUQ pain n/v/d Comparison Study: None TECHNIQUE: Multidetector CT of the abdomen and pelvis without IV contrast. Axial, coronal and sagittal multiplanar reformats were obtained from the axial data set by the technologist. Radiation Dose Information: CT Dose: CTDI volume is 8.72 mGy. Dose-length product is 841.62 mGy*cm FINDINGS: Bibasilar atelectasis. Partially visualized heart is unremarkable. Mild hepatomegaly. Otherwise, liver, spleen, gallbladder, pancreas unremarkable. Mild hyperplasia of the left adrenal gland. Otherwise, the adrenal glands are unremarkable. Kidneys, ureters and urinary bladder unremarkable. Prostate measures 3.8 x 4.9 by 3.1 cm. Stomach is unremarkable. Small bowel loops unremarkable. Appendix is not well- visualized with no pericecal inflammatory reaction to suggest acute appendicitis. Limited evaluation of the abdominal structures due to motion. Questionable minimal wall thickening of the decompressed ascending colon with artifact limiting evaluation. Diverticulosis of the ascending colon without diverticulitis. No evidence of intraperitoneal free air or free fluid. No evidence of aortic aneurysm. No significant lymphadenopathy. Tiny fat containing umbilical hernia. Small fat containing left inguinal hernia. Subcentimeter bilateral inguinal lymph nodes which may be reactive. Destructive osseous lesions noted. IMPRESSION: Limited noncontrast imaging with motion artifact. Questionable minimal wall thickening of the decompressed ascending colon which may be due to inadequate distention with mild colitis not excluded. Colonic diverticulosis without diverticulitis. Appendix is not well-visualized. Without complete visualization of the appendix, can not exclude acute appendicitis. Labs Test 03/10/25 16:31 03/10/25 13:57 Range/Units Urine Color Yellow Yellow Urine Clarity Clear Clear Urine pH 6.5 5.0-9.0 Urine Specific [place] 1.029 1.001-1.035 Urine Protein Trace H Negative Urine Ketones 3+ H Negative Urine Blood Negative Negative /uL Urine Nitrite Negative Negative Urine Bilirubin Negative Negative Urine Urobilinogen Normal Negative mg/dL Urine Leukocyte Esterase Negative Negative /uL Urine RBC 1 0 - 3 /hpf Urine Microscopic WBC 1 0-3 /HPF Urine Squamous Epithelial Cells Few <5 /hpf Urine Bacteria None seen None Seen /hpf Urine Mucus Few None Seen Urine Glucose Normal Normal mg/dL White Blood Count 6.1 4.4-10.8 10^3/uL Red Blood Count 5.67 4.5-5.90 10^6/uL Hemoglobin 16.5 13.5-17.5 g/dL Hematocrit 47.8 41.0-53.0 % Mean Corpuscular Volume 84.3 80.0-100.0 fL Mean Corpuscular Hemoglobin 29.1 28.0-32.0 pg Mean Corpuscular Hemoglobin Concent 34.5 32.0-36.0 g/dL Red Cell Distribution Width 13.2 11.8-14.3 % Platelet Count 231 140-450 10^3/uL Mean Platelet Volume 10.3 6.9-10.8 fL Neutrophils (%) (Auto) 85.0 H 37.0-80.0 % Lymphocytes (%) (Auto) 12.2 10.0-50.0 % Monocytes (%) (Auto) 2.5 0.0-12.0 % Eosinophils (%) (Auto) 0.0 0.0-7.0 % Basophils (%) (Auto) 0.3 0.0-2.0 % Neutrophils # (Auto) 5.2 1.6-8.6 10 ^3/uL Lymphocytes # (Auto) 0.7 0.4-5.4 10 ^3/uL Monocytes # (Auto) 0.2 0-1.3 10 ^3/uL Eosinophils # (Auto) 0 0-0.8 10 ^3/uL Basophils # (Auto) 0 0-0.2 10 ^3/uL Nucleated Red Blood Cells 0.2 % Sodium Level 141 136-145 mmol/L Potassium Level 3.5 3.5-5.1 mmol/L Chloride Level 109 H 98-107 mmol/L Carbon Dioxide Level 21 20-31 mmol/L Anion Gap 11 5-15 Blood Urea Nitrogen 7 L 9-23 mg/dL Creatinine 0.94 0.700-1.30 mg/dL Glomerular Filtration Rate Calc 106 >90 mL/min BUN/Creatinine Ratio 7.4 L 10.0-20.0 Serum Glucose 107 H 74-106 mg/dL Calcium Level 9.8 8.7-10.4 mg/dL Total Bilirubin 0.6 0.2-1.0 mg/dL Aspartate Amino Transferase (AST) 23 13-40 U/L Alanine Aminotransferase (ALT) 23 7-40 U/L Alkaline Phosphatase 86 46-116 U/L Total Protein 7.5 5.7-8.2 g/dL Albumin 4.8 3.2-4.8 g/dL Lipase 27 12-53 U/L SEPSIS Sepsis Screen Date sepsis recognized/suspect: Mar 10, 2025 Time Sepsis recognized/suspect: 1939 Recent Procedure: No On Antibiotic Therapy: No Respiratory Rate >20: No Heart Rate >90: No Temp<36 C (96.8 F) or >38.3 C: No SBP <90 or MAP <65 mmHG: No New Acute Mental Status Change: No Is the patient on CPAP, BIPAP,: No Physician Orders Admit (03/10/25 19:05) Ceftriaxone 1gm/50ml D5w (Rocephin) (03/11/25 09:00) Metronidazole 500mg/100ml (Flagyl 500mg/ (03/10/25 22:00) Stool Bacterial Culture (03/10/25 19:08) Pantoprazole (Protonix) (03/11/25 10:00) * [employer] (03/10/25 19:08) Basic Metabolic Panel (03/11/25 04:00) Hydrocodone-Acet 5/325mg Tab ([place] 5/32 (03/10/25 19:15) Temazepam (Restoril) (03/10/25 22:00) Ondansetron Hcl (Zofran) (03/10/25 19:15) Complete Blood Count (03/11/25 04:00) Condition: Stable (03/10/25 19:08) Acetaminophen Tablet (Tylenol Tablet) (03/10/25 19:15) Clear Liq Diet (03/11/25 Breakfast) Bedrest With Bathroom Privileg (03/10/25 19:08) Morphine Sulfate Injection (03/10/25 19:15) Vital Signs Date Time Temp Pulse Resp B/P (MAP) Pulse Ox O2 Delivery O2 Flow Rate FiO2 03/10/25 21:00 98.0 65 19 115/58 (77) 98 98.0 03/10/25 20:00 89 03/10/25 19:25 68 17 96 Room Air* 0 21 03/10/25 19:01 68 19 125/72 (89) 99 03/10/25 18:41 85 03/10/25 18:00 72 18 125/72 (89) 96 03/10/25 18:00 76 16 125/72 03/10/25 16:28 97.6 49 14 153/83 (106) 99 97.6 03/10/25 16:28 49 14 99 Room Air* 0 21 03/10/25 15:05 60 18 137/70 03/10/25 14:58 60 18 98 Room Air* 0 21 03/10/25 14:58 98.1 60 18 137/70 (92) 99 98.1 Laboratory Tests Test 03/10/25 13:57 White Blood Count 6.1 10^3/uL (4.4-10.8) Medications Medications Dose Ordered Sig/Andrew Route Start Time Stop Time Status Last Admin Dose Admin Levofloxacin/ Dextrose 100 ml @ 100 mls/hr ONCE ONCE IV 03/10/25 15:00 03/10/25 15:59 DC 03/10/25 17:25 100 MLS/HR Metronidazole 100 ml @ 100 mls/hr ONCE ONCE IV 03/10/25 15:00 03/10/25 15:59 DC 03/10/25 15:32 100 MLS/HR Morphine Sulfate 4 mg ONCE ONCE IV 03/10/25 13:30 03/10/25 13:35 DC 03/10/25 15:05 4 MG Ondansetron HCl 8 mg ONCE ONCE IV 03/10/25 13:30 03/10/25 13:35 DC 03/10/25 15:06 8 MG Prochlorperazine Edisylate 10 mg ONCE ONCE IV 03/10/25 16:15 03/10/25 16:16 DC 03/10/25 17:24 10 MG Sodium Chloride 3,000 ml @ 1,000 mls/hr Q3H ONCE IV 03/10/25 13:30 03/10/25 16:29 DC 03/10/25 15:05 1,000 MLS/HR Assessment/Plan Assessment/Plan Assessment Acute abdominal pain Acute colitis Plan Admit the patient to [facility] to the hospitalist Rocephin/Flagyl Stool bacterial culture pending Pain management GI consultation Clear liquid diet Continue treatment per orders. Plan discussed with: Patient My Orders Orders - LIDYA SALAZAR Procedure Category Date Status Time Admit ADMIT 03/10/25 Transmitted 19:05 Ceftriaxone 1gm/50ml PHA 03/11/25 In Process D5w (Rocephin) 09:00 Metronidazole PHA 03/10/25 In Process 500mg/100ml (Flagyl 22:00 Stool Bacterial ERICK 03/10/25 Logged Culture 19:08 Pantoprazole PHA 03/11/25 In Process (Protonix) 10:00 * [employer] CONS 03/10/25 Transmitted 19:08 Basic Metabolic Panel LAB 03/11/25 Verified 04:00 Hydrocodone-Acet PHA 03/10/25 In Process 5/325mg Tab ([place] 19:15 Temazepam (Restoril) PHA 03/10/25 In Process 22:00 Ondansetron Hcl PHA 03/10/25 In Process (Zofran) 19:15 Complete Blood Count LAB 03/11/25 Verified 04:00 Condition: Stable KANE 03/10/25 In Process 19:08 Acetaminophen Tablet PHA 03/10/25 In Process (Tylenol Tablet) 19:15 Clear Liq Diet DIET 03/11/25 Transmitted Breakfast Bedrest With Bathroom KANE 03/10/25 In Process Privileg 19:08 Morphine Sulfate PHA 03/10/25 In Process Injection 19:15 Date of Service: Mar 10, 2025 Billing Provider: LIDYA SALAZAR Common Visit Codes: [id number] INP/OBS CARE (MOD) LIDYA SALAZAR Mar 10, 2025 22:06
[2025-03-10] MEDS: HYDROcodone-ACET 5/325MG TAB PO PRN (22:59)
[2025-03-10] MEDS: TEMAZEPAM 15 MG CAP PO PRN (22:59)
[2025-03-11 01:00] VITALS: BP 104/56; PULSE 64; RESP 18; TEMP 98.3; O2SAT 96
[2025-03-11 05:00] VITALS: BP 128/82; PULSE 65; RESP 18; TEMP 98.5; O2SAT 99
[2025-03-11 06:50] LABS: Potassium 3.5 mmol/L (3.5-5.1); Sodium 141 mmol/L (136-145)
[2025-03-11 06:51] LABS: Anion Gap 9 (5-15); Carbon Dioxide 21 mmol/L (20-31)
[2025-03-11 06:52] LABS: Calcium 8.8 mg/dL (8.7-10.4); Chloride 111 mmol/L (98-107)
[2025-03-11 06:53] LABS: Hematocrit 42.2 % (41.0-53.0); Hemoglobin 14.4 g/dL (13.5-17.5); Mean Corpuscular Hemoglobin 29.4 pg (28.0-32.0); Mean Corpuscular Volume 86.3 fL (80.0-100.0); Nucleated Red Blood Cells % 0.1 %
[2025-03-11 06:56] LABS: BUN/Creatinine Ratio 5.3 (10.0-20.0); Glucose 91 mg/dL (74-106)
[2025-03-11 06:57] LABS: Blood Urea Nitrogen 5 mg/dL (9-23)
[2025-03-11] MEDS: cefTRIAXone 1GM/50ML D5W 50 ML IV SCH (08:47)
[2025-03-11 09:30] VITALS: BP 125/84; PULSE 60; RESP 18; TEMP 98.4; O2SAT 99
[2025-03-11] MEDS: PANTOPRAZOLE 40 MG/10 ML VIAL INJ IV SCH (09:30)
[2025-03-11 11:16] LABS: Amphetamine Screen, Urine Neg (NEGATIVE)
[2025-03-11 11:19] LABS: Opiate Scree,Urine Pos (NEGATIVE); Phencyclidine Screen, Urine Neg (NEGATIVE)
[2025-03-11 11:21] LABS: Barbiturate Scree,Urine Neg (NEGATIVE); Benzodiazephine Screen, Urine Neg (NEGATIVE); Cannabinoid Screen, Urine Pos (NEGATIVE); Cocaine Screen, Urine Neg (NEGATIVE)
--- NOTE | 2025-03-11 12:59 | DVHINCON2 ---
GI Consult Consult Note GI consult note Date of Consultation: 03/11/2025 Chief Complaint: Colitis Referring Physician: [place] H&P: 39-year-old male admitted with abdominal pain. Patient complains of upper abdominal pain for two days, which is improving at this time. Similar episode for 4-5 months ago. Patient complains of nausea and vomiting, denies hematemesis. Also having loose stool for the past two days about 3-4 episodes every day. Denies melena or red blood in stool. No colonoscopy in past. No family history of colon problems Past Medical History: Asthma Past Surgical History: Denies Social History: + smoking, denies drinking ETOH and use of illegal drugs. Family History: Noncontributory Review of Systems: Constitutional: no fever, chill, weight loss HEENT: no eye pain, no hearing loss, no oral lesion, no scleral icterus Heart: no chest pain, no chest pressure Lung: no cough, no dyspnea with exertion Abdomen: see HPI Physical exam: General: NAD, AAOX3 Chest: lung olson clear to auscultation Heart: RRR, no murmur Abdomen: non-distended, no tenderness to palpation, +BS Labs: Labs Test 03/11/25 10:50 03/11/25 10:30 03/11/25 05:15 03/10/25 16:31 Range/Units Urine Opiates Screen Pos NEGATIVE Urine Fentanyl Screen Neg NEGATIVE Urine Barbiturates Screen Neg NEGATIVE Urine Phencyclidine Screen Neg NEGATIVE Urine Amphetamines Screen Neg NEGATIVE Urine Benzodiazepines Screen Neg NEGATIVE Urine Cocaine Screen Neg NEGATIVE Urine Cannabinoids Screen Pos NEGATIVE White Blood Count 7.1 4.4-10.8 10^3/uL Red Blood Count 4.89 4.5-5.90 10^6/uL Hemoglobin 14.4 13.5-17.5 g/dL Hematocrit 42.2 # 41.0-53.0 % Mean Corpuscular Volume 86.3 80.0-100.0 fL Mean Corpuscular Hemoglobin 29.4 28.0-32.0 pg Mean Corpuscular Hemoglobin Concent 34.0 32.0-36.0 g/dL Red Cell Distribution Width 13.4 11.8-14.3 % Platelet Count 181 140-450 10^3/uL Mean Platelet Volume 10.6 6.9-10.8 fL Neutrophils (%) (Auto) 52.4 37.0-80.0 % Lymphocytes (%) (Auto) 30.5 10.0-50.0 % Monocytes (%) (Auto) 16.2 H 0.0-12.0 % Eosinophils (%) (Auto) 0.4 0.0-7.0 % Basophils (%) (Auto) 0.5 0.0-2.0 % Neutrophils # (Auto) 3.7 1.6-8.6 10 ^3/uL Lymphocytes # (Auto) 2.2 0.4-5.4 10 ^3/uL Monocytes # (Auto) 1.2 0-1.3 10 ^3/uL Eosinophils # (Auto) 0 0-0.8 10 ^3/uL Basophils # (Auto) 0 0-0.2 10 ^3/uL Nucleated Red Blood Cells 0.1 % Sodium Level 141 136-145 mmol/L Potassium Level 3.5 3.5-5.1 mmol/L Chloride Level 111 H 98-107 mmol/L Carbon Dioxide Level 21 20-31 mmol/L Anion Gap 9 5-15 Blood Urea Nitrogen 5 L 9-23 mg/dL Creatinine 0.95 0.700-1.30 mg/dL Glomerular Filtration Rate Calc 104 >90 mL/min BUN/Creatinine Ratio 5.3 L 10.0-20.0 Serum Glucose 91 74-106 mg/dL Calcium Level 8.8 8.7-10.4 mg/dL Vitamin D 25-Hydroxy 36.9 30.0-100 ng/mL Urine Color Yellow Yellow Urine Clarity Clear Clear Urine pH 6.5 5.0-9.0 Urine Specific [place] 1.029 1.001-1.035 Urine Protein Trace H Negative Urine Ketones 3+ H Negative Urine Blood Negative Negative /uL Urine Nitrite Negative Negative Urine Bilirubin Negative Negative Urine Urobilinogen Normal Negative mg/dL Urine Leukocyte Esterase Negative Negative /uL Urine RBC 1 0 - 3 /hpf Urine Microscopic WBC 1 0-3 /HPF Urine Squamous Epithelial Cells Few <5 /hpf Urine Bacteria None seen None Seen /hpf Urine Mucus Few None Seen Urine Glucose Normal Normal mg/dL Test 03/10/25 13:57 Range/Units Total Bilirubin 0.6 0.2-1.0 mg/dL Aspartate Amino Transferase (AST) 23 13-40 U/L Alanine Aminotransferase (ALT) 23 7-40 U/L Alkaline Phosphatase 86 46-116 U/L Total Protein 7.5 5.7-8.2 g/dL Albumin 4.8 3.2-4.8 g/dL Lipase 27 12-53 U/L Imaging: CT abdomen pelvis IMPRESSION: Limited noncontrast imaging with motion artifact. Questionable minimal wall thickening of the decompressed ascending colon which may be due to inadequate distention with mild colitis not excluded. Colonic diverticulosis without diverticulitis. Appendix is not well-visualized. Without complete visualization of the appendix, can not exclude acute appendicitis. Assessment: Abdominal pain improving Possible colitis Plan: Discussed with Dr. Navarro Stool test pending Continue antibiotic use Full liquid diet advance as tolerated Outpatient follow-up for possible plan for elective colonoscopy Thank you for this consult Date of Service: Mar 11, 2025 Billing Provider: TACHO FINNEY Common Visit Codes: CONSULT ONLY Consultation Codes: [id number] CONSULT <45MIN TACHO FINNEY Mar 11, 2025 12:58
[2025-03-11] MEDS ORDERED: METR-344 PO (14:19)
[2025-03-11] MEDS ORDERED: CEPH250C PO (14:19)
--- NOTE | 2025-03-11 15:24 | DVHDSRES ---
Discharge Summary Date of Admission Resident Creating Document: AALIYAH MALIN RESIDENT Mar 10, 2025 at 19:05 Date of Discharge: Mar 11, 2025 Admitting Diagnosis Abdominal pain Labs/Diagnostic Data: Laboratory Results Test 03/11/25 10:50 03/11/25 10:30 03/11/25 05:15 03/10/25 16:31 Urine Opiates Screen Pos (NEGATIVE) Urine Fentanyl Screen Neg (NEGATIVE) Urine Barbiturates Screen Neg (NEGATIVE) Urine Phencyclidine Screen Neg (NEGATIVE) Urine Amphetamines Screen Neg (NEGATIVE) Urine Benzodiazepines Screen Neg (NEGATIVE) Urine Cocaine Screen Neg (NEGATIVE) Urine Cannabinoids Screen Pos (NEGATIVE) Stool for White Cells None seen White Blood Count 7.1 10^3/uL (4.4-10.8) Red Blood Count 4.89 10^6/uL (4.5-5.90) Hemoglobin 14.4 g/dL (13.5-17.5) Hematocrit 42.2 % (41.0-53.0) Mean Corpuscular Volume 86.3 fL (80.0-100.0) Mean Corpuscular Hemoglobin 29.4 pg (28.0-32.0) Mean Corpuscular Hemoglobin Concent 34.0 g/dL (32.0-36.0) Red Cell Distribution Width 13.4 % (11.8-14.3) Platelet Count 181 10^3/uL (140-450) Mean Platelet Volume 10.6 fL (6.9-10.8) Neutrophils (%) (Auto) 52.4 % (37.0-80.0) Lymphocytes (%) (Auto) 30.5 % (10.0-50.0) Monocytes (%) (Auto) 16.2 % (0.0-12.0) Eosinophils (%) (Auto) 0.4 % (0.0-7.0) Basophils (%) (Auto) 0.5 % (0.0-2.0) Neutrophils # (Auto) 3.7 10 ^3/uL (1.6-8.6) Lymphocytes # (Auto) 2.2 10 ^3/uL (0.4-5.4) Monocytes # (Auto) 1.2 10 ^3/uL (0-1.3) Eosinophils # (Auto) 0 10 ^3/uL (0-0.8) Basophils # (Auto) 0 10 ^3/uL (0-0.2) Nucleated Red Blood Cells 0.1 % Sodium Level 141 mmol/L (136-145) Potassium Level 3.5 mmol/L (3.5-5.1) Chloride Level 111 mmol/L (98-107) Carbon Dioxide Level 21 mmol/L (20-31) Anion Gap 9 (5-15) Blood Urea Nitrogen 5 mg/dL (9-23) Creatinine 0.95 mg/dL (0.700-1.30) Glomerular Filtration Rate Calc 104 mL/min (>90) BUN/Creatinine Ratio 5.3 (10.0-20.0) Serum Glucose 91 mg/dL (74-106) Calcium Level 8.8 mg/dL (8.7-10.4) Vitamin D 25-Hydroxy 36.9 ng/mL (30.0-100) Urine Color Yellow (Yellow) Urine Clarity Clear (Clear) Urine pH 6.5 (5.0-9.0) Urine Specific [place] 1.029 (1.001-1.035) Urine Protein Trace (Negative) Urine Ketones 3+ (Negative) Urine Blood Negative /uL (Negative) Urine Nitrite Negative (Negative) Urine Bilirubin Negative (Negative) Urine Urobilinogen Normal mg/dL (Negative) Urine Leukocyte Esterase Negative /uL (Negative) Urine RBC 1 /hpf (0 - 3) Urine Microscopic WBC 1 /HPF (0-3) Urine Squamous Epithelial Cells Few /hpf (<5) Urine Bacteria None seen /hpf (None Seen) Urine Mucus Few (None Seen) Urine Glucose Normal mg/dL (Normal) Test 03/10/25 13:57 Total Bilirubin 0.6 mg/dL (0.2-1.0) Aspartate Amino Transferase (AST) 23 U/L (13-40) Alanine Aminotransferase (ALT) 23 U/L (7-40) Alkaline Phosphatase 86 U/L (46-116) Total Protein 7.5 g/dL (5.7-8.2) Albumin 4.8 g/dL (3.2-4.8) Lipase 27 U/L (12-53) Other Laboratory Tests 03/11/25 05:15 Brief Hx & Hospital Course: Eugene De Paz Jr a 39-year-old male presents for evaluation of abdominal pain. Patient reports a two day history of acute left-sided upper abdominal pain which was 8/10 in intensity, intermittent in nature, non radiating, with no aggravating or relieving factors,but was associated with diaphoresis, intermittent chills, nausea, over 7 episodes of vomiting and 3-4 episodes of diarrhea. Patient denies any history of recent sick contacts or recent travel. Past Medical History: Diagnosed of Asthma when she was a child (never taken medication) Past Surgical History: Denies Family History: No history of heart disease, hypertension, diabetes, cancer in the family Social history: Patient lives with family;smoking from his teenage years 10 cigarettes per day, stop for 4-5 years when there was a in the family in his restarted smoking in the last 2 years and takes 10 cigarettes per day again we will stop he reports he drinks socially and smokes marijuana every day but no other drugs. Home medication: None Allergies: None Brief history of hospitalization: 39-year-old male with abdominal pain had his CT done which revealed questionable minimal wall thickening of the decompressed ascending colon which may be due to inadequate distention with mild colitis not excluded. Colonic diverticulosis without diverticulitis. For patient's possible mild colitis we started him on IVF, pantoprazole, ceftriaxone, metronidazole, and prochlorperazine. stool culture was sent. Patient was put on pain management with acetaminophen 6 QH p.r.n. and morphine sulfate Q6H p.r.n. GI consultation was done and suggested continuation of antibiotic use, full liquid diet advanced as tolerated and outpatient follow up for possible plan for elective colonoscopy. Patient is now stable to discharge. He has been counseled regarding the need of antibiotics outpatient Keflex and Rocephin. Patient communicates understanding. He has also been asked to follow up outpatient regarding the rash in his feet Physical exam on the day of discharge: Gen: 39-year-old male alert, oriented to person, place and time, cooperative Skin: Warm, dry, normal color and texture; Presence of rash in bilateral feet on the medial side of feet, purple, scaly, covering 2/3 of the soles HEENT: Normocephalic atraumatic, mucous membranes moist and pink. Neck: Cervical and supraclavicular nodes normal without enlargement, trachea is midline, thyroid gland is normal without masses. Pulmonary: Clear to auscultation and percussion bilaterally. No added sounds heard Cardiac: Regular rate and rhythm. S1, S2 heard. No murmurs Abdomen: Soft, mild left-sided upper quadrant tenderness on deep palpation, nondistended, bowel sounds present in all 4 quadrants, no guarding, no rigidity, no organomegaly. Extremities: No cyanosis, clubbing, no edema, presence of rash in bilateral feet on medial side, purple, scaly 2/3 of the soles Neuro: Cranial nerves II through XII grossly intact, normal affect and speech, no focal motor deficits. Counseled on marijuana and tobacco use cessation for 22 minutes; including 12 minutes for tobacco use cessation Goals of care discussed with the patient for 20 minutes; full code Case discussed with Operations or Procedures Exam: CT CT AB PEL WO CON-NO ORAL OR IV IMPRESSION: Limited noncontrast imaging with motion artifact. Questionable minimal wall thickening of the decompressed ascending colon which may be due to inadequate distention with mild colitis not excluded. Colonic diverticulosis without diverticulitis. Appendix is not well-visualized. Without complete visualization of the appendix, can not exclude acute appendicitis. Condition at Discharge: Stable Final Diagnosis/Problems List Mild colitis Diverticulosis without diverticulitis Rash, unspecified Discharge Disposition: Home Discharge Instruct/Medications Diet: Regular Activity: No Restrictions, As Tolerated Follow Up/Referral: fu with Dr. Lozada at 1:30pm on Sunday in discharge clinic Medications: continue meds as prescribed Scheduled Cephalexin (Keflex Capsule), 2 CAP PO BID Cephalexin Monohydrate (Cephalexin), 1 CAP PO QID Cephalexin Monohydrate (Cephalexin), 1 CAP PO QID Methylprednisolone (Medrol Dosepak), 4 MG PO UD Metronidazole (Flagyl), 1 TAB PO TID Triamcinolone Acetonide (Triamcinolone Acetonide), 1 APPLIC TOP BID Scheduled PRN Naloxone HCl (Narcan), 4 MG CYNDY ONCE PRN Discharge Statement: "Patient was advised to return to the ER or call 911 if any headaches, dizziness, shortness of breath, chest pain, abdominal pain, bleeding, fevers, or worsening of medical condition. Patient was counseled about treatment plan, medications, possible side effects, patientverbalized understanding. All questions were answered to the best of my ability. This discharge took greater then 30 minutes in planning, reviewing documentation, counseling the patient, and discussing with other team members." ASSESSMENT ASSESSMENT Assessment colitis Addendum Addendum Addendum I was physically present for the costa portions of the service provided to patient by THE RESIDENT. I have reviewed the documentation, discussed the case with resident and agree with the resident's documentation except as noted. Also the patient's clinical case was discussed with the patient's nurse. This medical document was created using an electronic medical record system with computerized dictation system. Although this document has been carefully reviewed, there might still be some phonetic and typographical errors. These areas are purely typographical due to imperfections of the software programs, and do not reflect any compromise in the patient's medical care. Late signature. Date of Service: Mar 11, 2025 Billing Provider: AMADEO LOZADA MD Common Visit Codes: [id number] DISCH DAY >30min Secondary Visit Codes: [id number] CHNG SMOKING >10MIN (Counseled on marijuana and tobacco use cessation for 22 minutes; including 12 minutes for tobacco use cessation), [id number] CARE PLAN 30 MINUTES (20 minutes) AALIYAH MALIN RESIDENT Mar 11, 2025 15:24 LAUREN COLES RESIDENT Mar 11, 2025 18:27 AMADEO LOZADA MD Mar 14, 2025 04:46
[2025-03-11 15:29] VITALS: TEMP 36.9
== END 2025-03-11 16:02 | disposition home or self-care (01) | DRG 249 ==
LOC: ER 10:55 → OVERFLOW 19:05 → TELE-WESTW 19:06
PROVIDERS: ADMIT Internal Medicine; ATTEND Emergency Medicine
DX: A09 Infectious gastroenteritis and colitis, unspecified (principal); F17.210 Nicotine dependence, cigarettes, uncomplicated; J45.909 Unspecified asthma, uncomplicated; K57.30 Diverticulosis of large intestine without perforation or abscess without bleeding; R21 Rash and other nonspecific skin eruption
CPT/HCPCS: 36415; 74176; 80048; 80053; 80307; 81001; 82306; 83690; 85025; 85048; 87045; 87427; 96365; 96375; G0378; J1956; J2405; J2470; J3490

== ENCOUNTER 2025-05-05 06:46 | Emergency (ER) | payer MEDICAID ==
[~2025-05-05] VITALS: Ht 182.9 cm; Wt 85.0 kg
[2025-05-05 06:46] VITALS: TEMP 97.5
[~2025-05-05 06:46] MED LIST changes: +CEPH250C PO; +METR-344 PO
--- NOTE | 2025-05-05 07:26 | ED.PDOC ---
GI ASSESSMENT HPI Comments 40 year old male presents to the ED with a chief complaint of nausea/vomiting since midnight. Patient states he woke up around midnight experiencing nausea/vomiting, diffused abdominal pain as well as shortness of breath. Last marijuana use was yesterday. PMHx asthma. Denies fever, chills, chest pain, dizziness, hematemesis, melena, blood in stool, dysuria, hematuria, headache. No other symptoms or modifying factors present at this time. Chief Complaint: Nausea/Vomiting Time Seen by MD: 07:20 Primary Care Provider: NONE Reviewed Notes: Medications, Allergies Allergies: Coded Allergies: NO KNOWN ALLERGIES (Unverified , 01/25/21) Home Meds Active Scripts Metronidazole (Flagyl) 500 Mg Tab, 1 TAB PO TID for 7 Days, #21 TAB Prov:MANE BLACKBURN RESIDENT 03/11/25 Cephalexin (KEFLEX CAPSULE) 250 Mg Cp, 2 CAP PO BID for 7 Days, #28 CAP Prov:MANE BLACKBURN 03/11/25 Methylprednisolone (Medrol Dosepak) 4 Mg Pollo, 4 MG PO UD, #21 TAB UAD Prov:DELON FRIAS 12/12/24 Triamcinolone Acetonide (Triamcinolone Acetonide) 0.1 % Oin, 1 APPLIC TOP BID, #30 GRAMS Prov:DELON FRIAS 12/12/24 Cephalexin Monohydrate (Cephalexin) 500 Mg Cap, 1 CAP PO QID, #40 CAP Prov:DELON FRIAS 12/12/24 Cephalexin Monohydrate (Cephalexin) 500 Mg Cap, 1 CAP PO QID for 5 Days, #20 CAP 0 Refills Prov:DAMARIS GODWIN NP 03/12/24 Naloxone HCl (Narcan) 4 Mg/0.1 Ml Spr, 4 MG CYNDY ONCE PRN, #1 SPRAY 5 Refills May repeat doses every 2-3 minutes as needed. Prov:ROBERT MALIN 03/19/23 Information Source: Patient Mode of Arrival: Ambulatory Timing: Hours Duration: Since onset Prehospital treatment: None Quality: Aching, Sharp Severity: Moderate Recent: None Recent Hx of: None Pain Location: Diffuse Modifying Factors: Nothing Associated sign and symptoms: Nausea, Vomiting, Abdominal Pain Past Medical History PAST MEDICAL HISTORY: Asthma Surgical History: Denies all surgeries Family History Family History: Reviewed,noncontributory to illness, No family hx of Cancer, No family hx of DM, No family hx of Heart berta, No family hx of HTN, No family hx ofKidney berta, No family hx of Liver berta, No family hx of Lung berta, No family hx of Stroke Social History Smoker: Cigarettes Alcohol: Denies ETOH Use Drugs: Marijuana Lives In: Home Constitutional: denies: chills, diaphoresis, fatigue, fever, malaise, sweats, weakness, others EENTM: denies: blurred vision, double vision, ear bleeding, ear discharge, ear drainage, ear pain, ear ringing, eye pain, eye redness, hearing loss, mouth pain, mouth swelling, nasal discharge, nose bleeding, nose congestion, nose pain, photophobia, tearing, throat pain, throat swelling, voice changes, others Respiratory: reports: shortness of breath; denies: cough, hemoptysis, orthopnea, SOB at rest, SOB with excertion, stridor, wheezing, others Cardiovascular: denies: chest pain, dizzy spells, diaphoresis, Dyspnea on exertion, edema, irregular heart beat, left arm pain, lightheadedness, palpitations, PND, syncope, others Gastrointestinal: reports: abdominal pain, nausea, vomiting; denies: abdomen distended, blood streaked bowels, constipated, diarrhea, dysphagia, difficulty swallowing, hematemesis, melena, poor appetite, poor fluid intake, rectal bleeding, rectal pain, others Genitourinary: denies: burning, dysuria, flank pain, frequency, hematuria, incontinence, penile discharge, penile sore, pain, testicle pain, testicle swelling, urgency, others Neurological: denies: dizziness, fainting, headache, left sided numbness, left sided weakness, numbness, paresthesia, pre-existing deficit, right sided numbness, right sided weakness, seizure, speech problems, tingling, tremors, weakness, others Musculoskeletal: denies: back pain, gout, joint pain, joint swelling, muscle pain, muscle stiffness, neck pain, others Integumetry: denies: bruises, change in color, change in hair/nails, dryness, laceration, lesions, lumps, rash, wounds, others Allergic/Immunocompromised: denies: Difficulty Healing, Frequent Infections, Hives, Itching, others Hematologic/Lymphatic: denies: anemia, blood clots, easy bleeding, easy bruising, swollen glands, others Endocrine: denies: excessive hunger, excessive sweating, excessive thirst, excessive urination, flushing, intolerance to cold, intolerance to heat, unexplained weight gain, unexplained weight loss, others Psychiatric: denies: anxiety, bipolar disorder, depression, hopeless, panic disorder, schizophrenia, sleepless, suicidal, others All Other Systems: Reviewed and Negative Physical Exam General Appearance: Moderate Distress HEENT: Normal ENT Inspection, Pharynx Normal, TMs Normal Neck: Full Range of Motion, Non-Tender, Normal, Normal Inspection Respiratory: Chest Non-Tender, Lungs Clear, No Accessory Muscle Use, No Respiratory Distress, Normal Breath Sounds Cardiovascular: No Edema, No JVD, No Murmur, No Gallop, Normal Peripheral Pulses, Regular Rate/Rhythm Breast Exam: Deferred Gastrointestinal: No Organomegaly, Non Tender, No Pulsatile Mass, Normal Bowel Sounds, Soft Genitalia: Deferred Pelvic: Deferred Rectal: Deferred Extremities: No calf tenderness, Normal capillary refill, Normal inspection, Normal range of motion, Non-tender, No pedal edema Musculoskeletal : Apperance: Normal Neurologic: Alert, i o psychologist II-XII nml as Tested, No Motor Deficits, Normal Affect, Normal Mood, No Sensory Deficits Cerebellar Function: Normal Reflexes: Normal Skin: Dry, Normal Color, Warm Peripheral Pulses: 3+ Radial (R), 3+ Radial (L) Lymphatic: No Adenopathy Was a procedure done? Was a procedure done?: No GI differential Dx Differential Diagnosis: Constipation, Diverticular disease, Esophagitis, Gastritis/PUD, Gastroenteritis X-Ray, Labs, Meds, VS Vital Signs Date Time Temp Pulse Resp B/P (MAP) Pulse Ox O2 Delivery O2 Flow Rate FiO2 05/05/25 08:58 60 18 170/96 05/05/25 08:55 53 18 170/96 (120) 100 05/05/25 06:46 97.5 53 24 152/76 100 97.5 Lab Test 05/05/25 10:43 05/05/25 07:16 Range/Units Urine Opiates Screen Pending Urine Fentanyl Screen Pending Urine Barbiturates Screen Pending Urine Phencyclidine Screen Pending Urine Amphetamines Screen Pending Urine Benzodiazepines Screen Pending Urine Cocaine Screen Pending Urine Cannabinoids Screen Pending White Blood Count 9.2 4.4-10.8 10^3/uL Red Blood Count 5.95 H 4.5-5.90 10^6/uL Hemoglobin 17.3 13.5-17.5 g/dL Hematocrit 51.3 41.0-53.0 % Mean Corpuscular Volume 86.2 80.0-100.0 fL Mean Corpuscular Hemoglobin 29.1 28.0-32.0 pg Mean Corpuscular Hemoglobin Concent 33.8 32.0-36.0 g/dL Red Cell Distribution Width 13.9 11.8-14.3 % Platelet Count 223 140-450 10^3/uL Mean Platelet Volume 10.4 6.9-10.8 fL Neutrophils (%) (Auto) 76.6 37.0-80.0 % Lymphocytes (%) (Auto) 18.8 10.0-50.0 % Monocytes (%) (Auto) 2.9 0.0-12.0 % Eosinophils (%) (Auto) 0.8 0.0-7.0 % Basophils (%) (Auto) 0.9 0.0-2.0 % Neutrophils # (Auto) 7.1 1.6-8.6 10 ^3/uL Lymphocytes # (Auto) 1.7 0.4-5.4 10 ^3/uL Monocytes # (Auto) 0.3 0-1.3 10 ^3/uL Eosinophils # (Auto) 0.1 0-0.8 10 ^3/uL Basophils # (Auto) 0.1 0-0.2 10 ^3/uL Nucleated Red Blood Cells 0.0 % Sodium Level 143 136-145 mmol/L Potassium Level 3.4 L 3.5-5.1 mmol/L Chloride Level 109 H 98-107 mmol/L Carbon Dioxide Level 21 20-31 mmol/L Anion Gap 13 5-15 Blood Urea Nitrogen 5 L 9-23 mg/dL Creatinine 1.10 0.700-1.30 mg/dL Glomerular Filtration Rate Calc 87 >90 mL/min BUN/Creatinine Ratio 4.5 L 10.0-20.0 Serum Glucose 116 H 74-106 mg/dL Calcium Level 10.2 8.7-10.4 mg/dL Current Medications Medications (Trade) Dose Ordered Sig/Andrew Route Start Time Stop Time Status Last Admin Sodium Chloride 1,000 ml @ 1,000 mls/hr Q1H ONCE IV 05/05/25 07:30 05/05/25 08:29 DC 05/05/25 08:59 Morphine Sulfate 4 mg ONCE ONCE IV 05/05/25 07:30 05/05/25 07:31 DC 05/05/25 08:58 Ondansetron HCl (Zofran) 4 mg ONCE ONCE IV 05/05/25 07:30 05/05/25 07:31 DC 05/05/25 08:58 Patient alert. Came in because of nausea vomiting. Vitals stable. Answering questions. Establish intravenous access. Was given fluids. Was given morphine. Was given Zofran. Abdomen is soft nontender. Marijuana induced symptom. Explained to the patient. Was told to follow up with his primary care physician. Was told to come back if there is any problem. Time of 1ST Reevaluation: 07:50 Reevaluation 1ST: Unchanged Patient Education/Counseling: Diagnosis, Treatment, Prognosis Family Education/Counseling: No Family Present SEPSIS Sepsis Screen Date sepsis recognized/suspect: May 05, 2025 Time Sepsis recognized/suspect: 645 Recent Procedure: No On Antibiotic Therapy: No Respiratory Rate >20: Yes Heart Rate >90: No Temp<36 C (96.8 F) or >38.3 C: No SBP <90 or MAP <65 mmHG: No New Acute Mental Status Change: No Is the patient on CPAP, BIPAP,: No Physician Orders Drug Screen (05/05/25 06:58) Vital Signs Date Time Temp Pulse Resp B/P (MAP) Pulse Ox O2 Delivery O2 Flow Rate FiO2 05/05/25 08:58 60 18 170/96 05/05/25 08:55 53 18 170/96 (120) 100 05/05/25 06:46 97.5 53 24 152/76 100 97.5 Laboratory Tests Test 05/05/25 07:16 White Blood Count 9.2 10^3/uL (4.4-10.8) Medications Medications Dose Ordered Sig/Andrew Route Start Time Stop Time Status Last Admin Dose Admin Morphine Sulfate 4 mg ONCE ONCE IV 05/05/25 07:30 05/05/25 07:31 DC 05/05/25 08:58 Ondansetron HCl 4 mg ONCE ONCE IV 05/05/25 07:30 05/05/25 07:31 DC 05/05/25 08:58 Sodium Chloride 1,000 ml @ 1,000 mls/hr Q1H ONCE IV 05/05/25 07:30 05/05/25 08:29 DC 05/05/25 08:59 Departure 1 Departure Time of Disposition: 07:35 Impression: Primary Impression: Intractable vomiting with nausea Additional Impression: Marijuana use Disposition: 01 HOME / SELF CARE / HOMELESS Condition: Good Discharged With: Self Critical Care Note Critical Care Time?: No Stability Stability form required: No Heart Score Heart Score: Heart Score Response (Comments) Value History N/A 0 EKG N/A 0 Age N/A 0 Risk Factors N/A 0 Troponin N/A 0 Total 0 I personally scribed for NIRALI FLETCHER MD ([email or web address]) on 05/05/25 at 07:26. Electronically submitted by Willa Estrada ([email or web address]). NIRALI FLETCHER MD May 05, 2025 07:26
[2025-05-05 07:37] LABS: Hematocrit 51.3 % (41.0-53.0); Hemoglobin 17.3 g/dL (13.5-17.5); Mean Corpuscular Hemoglobin 29.1 pg (28.0-32.0); Mean Corpuscular Volume 86.2 fL (80.0-100.0); Nucleated Red Blood Cells % 0.0 %
[2025-05-05 07:45] LABS: Sodium 143 mmol/L (136-145)
[2025-05-05 07:46] LABS: Anion Gap 13 (5-15); Carbon Dioxide 21 mmol/L (20-31)
[2025-05-05 07:47] LABS: Calcium 10.2 mg/dL (8.7-10.4); Chloride 109 mmol/L (98-107); Potassium 3.4 mmol/L (3.5-5.1)
[2025-05-05 07:51] LABS: BUN/Creatinine Ratio 4.5 (10.0-20.0)
[2025-05-05 07:52] LABS: Blood Urea Nitrogen 5 mg/dL (9-23); Glucose 116 mg/dL (74-106)
[2025-05-05 08:55] VITALS: O2SAT 100
[2025-05-05 08:58] VITALS: BP 170/96; PULSE 60; RESP 18
[2025-05-05] MEDS: ONDANSETRON HCL 4 MG/2 ML VIAL IV ONE (08:58)
[2025-05-05] MEDS: MORPHINE SULFATE 4 MG/ML SYR/VIAL IV ONE (08:58)
[2025-05-05] MEDS: SODIUM CHLORIDE 0.9% 1,000 ML IV ONE (08:59)
[2025-05-05 17:54] LABS: Cannabinoid Screen, Urine Pos (NEGATIVE)
[2025-05-05 18:16] LABS: Amphetamine Screen, Urine Neg (NEGATIVE); Barbiturate Scree,Urine Neg (NEGATIVE); Benzodiazephine Screen, Urine Neg (NEGATIVE); Cocaine Screen, Urine Pos (NEGATIVE); Opiate Scree,Urine Pos (NEGATIVE); Phencyclidine Screen, Urine Neg (NEGATIVE)
== END 2025-05-05 11:10 | disposition home or self-care (01) ==
LOC: ER 06:46
DX: R11.2 Nausea with vomiting, unspecified (principal); F12.90 Cannabis use, unspecified, uncomplicated; F17.210 Nicotine dependence, cigarettes, uncomplicated; J45.909 Unspecified asthma, uncomplicated; Z79.899 Other long term (current) drug therapy
CPT/HCPCS: 36415; 80048; 80307; 85025; 96361; 96374; 96375; 99284; J2270; J2405; J7030